=== PATIENT | female | born 1985 | race Caucasian/White ===

== ENCOUNTER 2018-03-24 17:39 | Emergency (ER) | payer OTHER ==
[~2018-03-24] VITALS: Ht 172.7 cm; Wt 74.8 kg
[~2018-03-24 17:39] MED LIST: PRENATAL MULTI1 EAC3 PO; ZOFRAN ODT8 MG PO
[2018-03-24] MEDS ORDERED: IBUPROFEN600 MG PO (18:23)
== END 2018-03-24 18:53 | disposition home or self-care (01) ==
LOC: ED 17:39
DX: S80.11XA Contusion of right lower leg, initial encounter (principal); X58.XXXA Exposure to other specified factors, initial encounter; Z88.0 Allergy status to penicillin
CPT/HCPCS: 73552; 99284-25

== ENCOUNTER 2019-04-05 22:07 | Inpatient (IN) | payer OTHER ==
[~2019-04-05] VITALS: Ht 172.7 cm; Wt 88.0 kg
[~2019-04-05 22:07] MED LIST changes: +IBUPROFEN600 MG PO; +NORCO 5-325 TA1 EACH PO; +PROGESTERONE200 MG PO; +PROMETHAZINE HC25 M1 PO
--- NOTE | 2019-04-06 09:46 | PR ---
[facility] [address] [facility] [place], [place] [address] Signed Progress Notes IP Datetime Report Generated by IVORY: 04/06/2019 09:46 PROGRESS NOTES: [id number] Impression: Normal progression of labor Procedures: Artificial ROM Plan: Continue present management Informed Consent Obtain: Vaginal Delivery; Risks, Benefits and Alternatives Discussed VITAL SIGNS: [id number] Vital Signs: Reviewed EXAM: [id number] Dilatation: 7.0 Effacement: 90 Station: -2 Uterine Contractions: q 1 to 5 min with lots of irritability as well MEMBRANES: [id number] Membrane Status: Ruptured Amniotic Fluid Color: Clear ROM Note: AROM of forebag with moderate amount of moderate mec Comments: Slow progress but comfortable with epidural. Will continue. Fetus A: [id number] FHR Baseline: 140 Variability: Moderate 6-25bpm Accelerations: 15X15 Decelerations: None FHR Category: Category I Presentation: Vertex Comments on Fetus A: No evidence of metabolic acidosis Fetus B: [id number] Signing Physician: Tiffanie Pruitt MD Copies: ~ *Electronically Signed* 04/06/19 0946 TIFFANIE PRUITT MD PATIENT NAME: ALBERT ARROYO PROGRESS NOTE DATE OF : 81 PHYSICIAN: TIFFANIE PRUITT MD RPT #: [id number] REPORT IS CONFIDENTIAL AND NOT TO BE RELEASED WITHOUT AUTHORIZATION
--- NOTE | 2019-04-06 11:19 | PR ---
[facility] [address] [place], [place] [address] Signed Progress Notes IP Datetime Report Generated by IVORY: 04/06/2019 11:19 PROGRESS NOTES: [id number] Impression: Arrest of dilatation/descent; Reassuring heart rate Procedures: Intrauterine Pressure Catheter; Sterile Vag Exam Plan: Continue present management Other Plans: possible augmentation depending on IUPC Informed Consent Obtain: Vaginal Delivery; Risks, Benefits and Alternatives Discussed VITAL SIGNS: [id number] Vital Signs: Reviewed; Within Normal Limits EXAM: [id number] Dilatation: 7.0 Effacement: 90 Station: -2 Uterine Contractions: q 2 to 3 min MEMBRANES: [id number] Membrane Status: Ruptured Amniotic Fluid Color: Clear ROM Note: AROM of forebag with moderate amount of moderate mec Comments: No progress since approx 0900. I suspect the contractions are of poor quality though frequent. Will place IUPC to evaluate further. Will also begin more extreme position changes. Fetus A: [id number] FHR Baseline: 140 Variability: Moderate 6-25bpm Accelerations: 15X15 Decelerations: None FHR Category: Category I Presentation: Vertex Comments on Fetus A: No evidence of metabolic acidosis Fetus B: [id number] Signing Physician: Tiffanie Pruitt MD Copies: ~ *Electronically Signed* 04/06/19 1119 TIFFANIE PRUITT MD PATIENT NAME: ALBERT ARROYO PROGRESS NOTE DATE OF : 81 PHYSICIAN: TIFFANIE PRUITT MD RPT #: [id number] REPORT IS CONFIDENTIAL AND NOT TO BE RELEASED WITHOUT AUTHORIZATION
--- NOTE | 2019-04-06 11:52 | PR ---
[facility] [address] [place], [place] [address] Signed Progress Notes IP Datetime Report Generated by IVORY: 04/06/2019 11:52 PROGRESS NOTES: [id number] Impression: Arrest of dilatation/descent Procedures: Intrauterine Pressure Catheter; Scalp Electrode; Sterile Vag Exam Other Procedures: ephedrine Plan: Continue present management Other Plans: possible augmentation depending on IUPC Informed Consent Obtain: Vaginal Delivery; Risks, Benefits and Alternatives Discussed VITAL SIGNS: [id number] Vital Signs: Reviewed EXAM: [id number] Dilatation: 7.0 Effacement: 90 Station: -2 Uterine Contractions: not picking up well MEMBRANES: [id number] Membrane Status: Ruptured Amniotic Fluid Color: Clear ROM Note: AROM of forebag with moderate amount of moderate mec Comments: Pt had apparent vagal episode with fainting and decreased BP. FHTs also decreased during that time but appear to be recovering with fluids, IV ephedrine, and position change. Suspect being on her back led to her decreased BP during this episode. Will continue close observation. FSE placed and IUPC replaced. There was no bleeding during her exam and no bloody show seen. Fetus A: [id number] FHR Baseline: 145 Variability: Minimal - Undetectable to <5bpm Accelerations: 15X15 Decelerations: Variable FHR Category: Category II Presentation: Vertex Comments on Fetus A: will require close observation Fetus B: [id number] Signing Physician: Elvia Pruitt MD Copies: *Electronically Signed* 04/06/19 1152 ELVIA PRUITT MD PATIENT NAME: ALBERT ARROYO PROGRESS NOTE DATE OF : 81 PHYSICIAN: ELVIA PRUITT MD RPT #: [id number] REPORT IS CONFIDENTIAL AND NOT TO BE RELEASED WITHOUT AUTHORIZATION [address] [place], [place] [address] Signed ~ *Electronically Signed* 04/06/19 1152 ELVIA PRUITT MD PATIENT NAME: ALBERT ARROYO PROGRESS NOTE DATE OF : 81 PHYSICIAN: LEVIA PRUITT MD RPT #: [id number] REPORT IS CONFIDENTIAL AND NOT TO BE RELEASED WITHOUT AUTHORIZATION
--- NOTE | 2019-04-07 08:18 | PR ---
[facility] [address] [facility] [place], [place] [address] Signed PP Progress Notes Datetime Report Generated by IVORY: 04/07/2019 08:18 SUBJECTIVE: [id number] Pain: Within normal limits Vital Signs: [id number] Vital Signs: Reviewed; Within Normal Limits EXAM: [id number] Cardiovascular: Not Done Respiratory: Not Done Abdomen/Uterus: Abnormal Lochia: Normal Vulva/Perineum: Not Done Breasts: Not Done CVA Tenderness: Not Done Extremities: Normal Incision: Not Applicable Progress: Normal Exam Comments: Fundus firm, NT @ U-1. H/H 10.5/31.9, WBC 12, plat 146k IMPRESSION/PLAN/PROCEDURES: [id number] Impression: Normal progression Plan: Discharge Procedures: None Progress Notes: Doing well. She desires D/C later today. Signing Physician: Tiffanie Pruitt MD Copies: ~ *Electronically Signed* 04/07/19817 TIFFANIE PRUITT MD PATIENT NAME: ALBERT ARROYO PROGRESS NOTE DATE OF : 81 PHYSICIAN: TIFFANIE PRUITT MD RPT #: [id number] REPORT IS CONFIDENTIAL AND NOT TO BE RELEASED WITHOUT AUTHORIZATION
== END 2019-04-07 19:40 | disposition home or self-care (01) | DRG 807 ==
LOC: FBCO 22:07 → FBC 22:45
PROVIDERS: ADMIT Obstetrics & Gynecology
PROC: 10E0XZZ Delivery of Products of Conception, External Approach (ICD-10-PCS; principal; 2019-04-06)
PROC: 0HQ9XZZ Repair Perineum Skin, External Approach (ICD-10-PCS; 2019-04-06)
PROC: 10907ZC Drainage of Amniotic Fluid, Therapeutic from Products of Conception, Via Natural or Artificial Opening (ICD-10-PCS; 2019-04-06)
PROC: 10H07YZ Insertion of Other Device into Products of Conception, Via Natural or Artificial Opening (ICD-10-PCS; 2019-04-06)
PROC: 00HU33Z Insertion of Infusion Device into Spinal Canal, Percutaneous Approach (ICD-10-PCS; 2019-04-06)
PROC: 3E0R3BZ Introduction of Anesthetic Agent into Spinal Canal, Percutaneous Approach (ICD-10-PCS; 2019-04-06)
DX: O69.81X0 Labor and delivery complicated by cord around neck, without compression, not applicable or unspecified (principal); Z37.0 Single live birth; Z3A.39 39 weeks gestation of pregnancy; O62.1 Secondary uterine inertia; O76 Abnormality in fetal heart rate and rhythm complicating labor and delivery; O77.0 Labor and delivery complicated by meconium in amniotic fluid; O70.0 First degree perineal laceration during delivery; O26.03 Excessive weight gain in pregnancy, third trimester; O99.89 Other specified diseases and conditions complicating pregnancy, childbirth and the puerperium; R12 Heartburn; Z79.899 Other long term (current) drug therapy; Z88.0 Allergy status to penicillin
CPT/HCPCS: 01960; 36415; 85027; A9270; J1644; J2590; J2795; J7121